=== PATIENT | female | born 1950 | race Caucasian/White ===

== ENCOUNTER 2018-02-02 17:43 | Observation (INO) | payer MEDICARE, OTHER, SELFPAY ==
[2018-02-02] VITALS (9 sets, daily range): BP systolic 98–118; BP diastolic 38–75; PULSE 92–98; RESP 11–18; TEMP 36.5–36.6; O2SAT 94–97; BMI 38.2; BMI 38.3
--- NOTE | 2018-02-02 18:04 | EKG12_ITS ---
Test Reason : Blood Pressure : / mmHG Vent. Rate : 092 BPM Atrial Rate : 092 BPM P-R Int : 154 ms QRS Dur : 088 ms QT Int : 372 ms P-R-T Axes : 026 008 146 degrees QTc Int : 460 ms Normal sinus rhythm Low voltage QRS Nonspecific T wave abnormality Abnormal ECG Confirmed by GENE SIMPSON, EVELINA ([id number]), production editor POPEYE FOSS ([id number]) on 02/06/2018 3:57:01 PM Referred By: YULISA Confirmed By:EVELINA MILLS MD
--- NOTE | 2018-02-02 18:05 | RAD_ITS ---
STUDY: X-RAY CHEST REASON FOR EXAM: Female, 67 years old. Shortness of breath. TECHNIQUE: Single AP portable view of the chest. COMPARISON: November 28, 2016. FINDINGS: Patient has had a sternotomy. A right-sided Mediport catheter is present with the tip of the catheter in the superior vena cava. There is moderate elevation of the right hemidiaphragm. The left lung is expanded. Appears to be small right-sided pleural effusion. There is borderline cardiomegaly. Normal mediastinum and blayne. Normal visualized pulmonary arteries. There is atherosclerotic calcification of the aortic arch with tortuosity. There are diffuse degenerative changes of the visualized thoracic spine. Normal visualized ribs, clavicles, and shoulders. There appear to be percutaneously placed drains within the right side of the abdomen and/or retroperitoneum. RAD/Chest 1 View (Portable) IMPRESSION: Small right-sided pleural effusion appears new since previous study. Electronically Signed: Nhung Sexton MD at 18:41 EDT , Service support ,
[2018-02-02] MEDS: Morphine 4 MG/ML Syringe IV (18:29)
[2018-02-02] MEDS: 0.9% Normal Saline 1,000 ML 125 ML IV (18:30)
[2018-02-02] MEDS: Ondansetron 4 MG/2 ML Vial IV (18:30)
[2018-02-02 18:34] LABS: Hemoglobin 10.2 g/dl (12.0-15.0); Mean Corp Hgb Conc 31.9 g/gl (32-36); Mean Corpuscular Hgb 31.5 pg (27.0-32.0); Mean Corpuscular Volume 98.8 fL (81-99); Mean Platelet Vol. 10.1 fl (6.2-12.0); Platelet Count 130 K/mm3 (150-450); RBC Distribution Width CV 17.1 % (11.6-14.6); RBC Distribution Width SD 60.6 fl (35.1-43.9); Red Blood Count 3.24 M/mm3 (4.2-5.4); White Blood Count 22.1 K/mm3 (4.4-11.0)
[2018-02-02 18:48] LABS: AST(SGOT) 124 U/L (15-37); Alanine Aminotransfer ALT/SGPT 42 U/L (13-56); Albumin, Serum 1.2 g/dL (3.2-5.0); Alkaline Phosphatase 279 U/L (45-117); Anion Gap 10 (5-15); BUN 39 mg/dL (7-18); BUN/Creat Ratio 18.1 RATIO (10-20); Bilirubin, Direct 10.76 mg/dL (0.00-0.30); Calcium,Total 7.7 mg/dL (8.5-10.1); Chloride 109 mmol/L (98-107); Creatinine, Serum 2.15 mg/dL (0.55-1.02); EST Glomerular Filtration Rate 24 mL/min (>60); Est Glom Filt Rate - Afr Amer 29 mL/min (>60); Estimated Creatinine Clearance 31.83 ml/min; Globulin 6.6 g/dL (2.2-4.2); Glucose 66 mg/dL (74-106); Lipase 45 U/L (73-393); Potassium 4.4 mmol/L (3.5-5.1); Protein, Total 7.8 g/dL (6.4-8.2); Sodium Level 138 mmol/L (136-145)
[2018-02-02 18:50] LABS: Lactic Acid 1.5 mmol/L (0.4-2.0); POSITIVE COUNT YES; POSITIVE DIFFERENTIAL YES; POSITIVE MORPHOLOGY YES
[2018-02-02 18:54] LABS: Mucous, Urine 0 SEEN /hpf (<or=2+)
[2018-02-02] MEDS: Dextrose 50%-Water 25 GM/50 ML DISP.SYRIN IV (18:59)
[2018-02-02 19:00] LABS: Color, Urine Amber (Yellow); Glucose, Dipstick Normal (Normal); Ketone-Dipstick 5 mg/dl (Negative); Leukocyte Esterase-Dipstick 25 /ul (Negative); Nitrite-Dipstick Positive (Negative); Occult Blood-Urine 150 /ul (Negative); Protein-Dipstick 30 mg/dl (Negative); Urine Clarity Cloudy (Clear); Urine Urobilinogen 4 mg/dl (Normal)
[2018-02-02 19:01] LABS: Scan Smear per Review Criteria MANUAL DIFF
[2018-02-02 19:02] LABS: Differential Indicated MANUAL DIFF
[2018-02-02 19:04] LABS: Basophil 1 % (0-1); Lymphocyte 3 % (19-41); Metamyelocyte 5 % (0-1); Monocyte 5 % (0-10); Neutrophil-Band 11 % (0-5); Neutrophil-Segmented 75 % (47-70); Total Cells Counted 100 (MANUAL DIFF)
--- NOTE | 2018-02-02 19:05 | CT_ITS ---
STUDY: CT ABDOMEN AND PELVIS WITHOUT CONTRAST REASON FOR EXAM: Female, 67 years old. Pain. History of bile duct cancer with chemotherapy and drainage catheter placement. RADIATION DOSAGE (If Supplied By Facility): CTDIvol = ( 20.93 ) mGy, DLP = ( 1187.29 ) mGycm TECHNIQUE: Transaxial images were obtained from the dome of the diaphragm to the symphysis pubis without oral contrast, and without intravenous contrast. Sagittal and coronal images were reconstructed. Individualized dose optimization techniques were used for this CT. COMPARISON: 12/21/2016 FINDINGS: The study is significantly limited without contrast. There is a moderate right pleural effusion with overlying atelectasis. The patient is status post sternotomy and coronary artery bypass. There is a pacemaker in place. There is a common bile duct stent in place. There are 2 internal/external biliary drainage catheters which traverse the common bile duct stent and have their tips in the duodenum. Although evaluation is limited without contrast, the previously seen biliary ductal dilatation appears to have decreased when compared with 12/21/2016. The spleen is normal in size. The pancreas demonstrates an unremarkable unenhanced appearance. The adrenal glands are within normal limits. There are no renal or ureteral stones. There is no hydronephrosis. Normal visualized stomach. There is no bowel obstruction or inflammation. There is a moderate amount of stool in the colon, consistent with constipation. The appendix is not visualized, but there are no findings to suggest acute appendicitis. The aorta is normal in caliber. There is an IVC filter in place. There is a small amount of free fluid. There is no free air, fluid collection or lymphadenopathy. There are new sclerotic osseous lesions noted in the right 11th rib, L3 vertebral body, bilateral iliac bones and in the sacrum. These are suspicious for metastasis. There is anasarca noted in the soft tissues. CT/Abdomen/Pelvis without Cont IMPRESSION: Study significantly limited without contrast. Interval placement of 2 internal/external biliary drainage catheters which traverse the previously seen common bile duct stent and have their tips in the duodenum. Although evaluation is significantly limited without contrast, the previously seen intrahepatic biliary duct dilatation appears to have decreased. New sclerotic osseous lesions in the ribs, spine, iliac bones and sacrum which are suspicious for metastasis. Further evaluation with bone scan is recommended. No bowel obstruction or inflammation. Constipation. Small amount of ascites. Moderate right pleural effusion with overlying atelectasis. Anasarca. Electronically Signed: Sherman Scanlon, at 19:44 EDT Tel , Service support ,
[2018-02-02 19:06] LABS: Urine Bilirubin Dipstick 6 mg/dL (Negative)
[2018-02-02 19:12] LABS: Amorphous Sediment 1+ URATE; Bacteria RARE /hpf (None Seen); Red Blood Cells-Urine 5-10 SEEN /hpf (0-5); Squamous Epithelial Cells - UA 0-5 SEEN /hpf (5-10); White Blood Cells 0-5 SEEN /hpf (0-5)
[2018-02-02 19:13] LABS: Yeast-Urine 1+ /hpf (None Seen)
--- NOTE | 2018-02-02 20:02 | ED.VISSUMM ---
- ER Visit Summary Date of Service: 02/02/18 Chief Complaint: Shortness of breath, weakness History of Present Illness: The patient is a 67 F presents to the emergency department with weakness and shortness of breath. The patient has history of cholangiocarcinoma. It has been rather invasive. Her recent course has been complicated by biliary duct obstruction. She was recently transferred to the [facility]. She had percutaneous drains placed in her biliary collection system by interventional radiology. Despite this, her jaundice has been worsening. She is now had increasing shortness of breath and generalized malaise. She has not had fever. She is been compliant with her Cipro therapy. She has not had any chemotherapy for greater than 10 days. She presents tonight because she states she is just been more weak and short of breath. is at the bedside. Physical Examination: Vital signs reviewed General: Cachectic elderly female who is visibly jaundiced in no distress Head: Normocephalic, atraumatic Eyes: Pupils equal and reactive, extraocular muscles intact Neck, supple, no lymphadenopathy Heart: Regular rate and rhythm Respiratory: No distress, diminished in the right base Abdomen: Soft, nontender, nondistended, no peritoneal signs, biliary drains intact with no purulence or erythema Back: Nontender Extremities: Nontender, no edema, no cords Skin: Normal color no rash Neuro: Alert and oriented, no focal or lateralizing deficits Test Results: [] Emergency Department Course and Treatment: Metabolic workup was pursued. The patient was not febrile, but she is obviously visibly jaundiced. IV was established. Screening labs showed leukocytosis, chronic anemia, worsening renal function, and rather significant increase in her bilirubin. Chest x-ray shows a right-sided effusion. CT of the abdomen pelvis cannot be done with contrast because of her worsening renal function. It does appear as if her biliary tract has been decompressed since the percutaneous drains were placed, but she does have new osseous metastasis, anasarca, and worsening of her disease. I discussed the patient with Dr. Sanchez. In light of her multiple aggressive recent treatments and failing despite these, he did not recommend transfer and I feel this is reasonable. Unfortunately, I do feel that the patient's malignancy is going to take her life sooner rather than later. The plan will be to admit the patient with oncology consult and likely pursuit of inpatient hospice. Family is comfortable with this plan of care. Treatment Plan: [] Disposition: Admission Impression: 1. Fatigue 2. Pleural effusion 3. Cholangiocarcinoma with diffuse metastasis This note was generated with [employer] dictation software. It may contain incorrect words, spelling, and punctuation that were not noted in review of the chart prior to signing ED Disposition - Plan for ED Patient: Chief Complaint: Shortness of Breath Referrals: Francisca Barron, JOCELIN-C [Primary Care Provider] -
--- NOTE | 2018-02-02 20:10 | ED.DCSUM_ITS ---
- ER Visit Summary Date of Service: 02/02/18 Chief Complaint: Shortness of breath, weakness History of Present Illness: The patient is a 67 F presents to the emergency department with weakness and shortness of breath. The patient has history of cholangiocarcinoma. It has been rather invasive. Her recent course has been complicated by biliary duct obstruction. She was recently transferred to the [facility]. She had percutaneous drains placed in her biliary collection system by interventional radiology. Despite this, her jaundice has been worsening. She is now had increasing shortness of breath and generalized malaise. She has not had fever. She is been compliant with her Cipro therapy. She has not had any chemotherapy for greater than 10 days. She presents tonight because she states she is just been more weak and short of breath. is at the bedside. Physical Examination: Vital signs reviewed General: Cachectic elderly female who is visibly jaundiced in no distress Head: Normocephalic, atraumatic Eyes: Pupils equal and reactive, extraocular muscles intact Neck, supple, no lymphadenopathy Heart: Regular rate and rhythm Respiratory: No distress, diminished in the right base Abdomen: Soft, nontender, nondistended, no peritoneal signs, biliary drains intact with no purulence or erythema Back: Nontender Extremities: Nontender, no edema, no cords Skin: Normal color no rash Neuro: Alert and oriented, no focal or lateralizing deficits Test Results: [] Emergency Department Course and Treatment: Metabolic workup was pursued. The patient was not febrile, but she is obviously visibly jaundiced. IV was established. Screening labs showed leukocytosis, chronic anemia, worsening renal function, and rather significant increase in her bilirubin. Chest x-ray shows a right-sided effusion. CT of the abdomen pelvis cannot be done with contrast because of her worsening renal function. It does appear as if her biliary tract has been decompressed since the percutaneous drains were placed, but she does have new osseous metastasis, anasarca, and worsening of her disease. I discussed the patient with Dr. Sanchez. In light of her multiple aggressive recent treatments and failing despite these, he did not recommend transfer and I feel this is reasonable. Unfortunately, I do feel that the patient's malignancy is going to take her life sooner rather than later. The plan will be to admit the patient with oncology consult and likely pursuit of inpatient hospice. Family is comfortable with this plan of care. Treatment Plan: [] Disposition: Admission Impression: 1. Fatigue 2. Pleural effusion 3. Cholangiocarcinoma with diffuse metastasis This note was generated with trend.ly dictation software. It may contain incorrect words, spelling, and punctuation that were not noted in review of the chart prior to signing ED Disposition - Plan for ED Patient: Chief Complaint: Shortness of Breath Referrals: Francisca Barron, JOCELIN-C [Primary Care Provider] -
--- NOTE | 2018-02-02 20:27 | PCM.HP.STD ---
Problem List (1) Pleural effusion, right Status: Acute (2) Cholangiocarcinoma Status: Chronic (3) Chronic kidney disease, stage III (moderate) Status: Inactive History of Present Illness Date of Admission: 02/02/18 Chief Complaint: shortness of breath and chest congestion The patient is a 67 year old F with a significant history of Cholangiocarcinoma with diffuse metastasis; CAD status post CABG and stent; hypertension; hyperlipidemia who presents with worsening shortness of breath and chest congestion for the past 2-3 days. Shortness of breath is at rest and it increases with exertion. She reports a productive cough of carvalho and white sputum. Associated with her symptoms is anorexia and weakness. In regards to her Cholangiocarcinoma with diffuse metastasis she had a previous biliary stent and a percutaneous drain was placed about 2 weeks ago at [facility].. At emergency department her white count was elevated and her creatinine was also severely elevated above her baseline. Emergency department doctor discussed her case with Dr. Gomez Sanchez who is patient's known oncologist. Per emergency department doctor, Dr. Sanchez wanted patient to be admitted with a plan to consider inpatient hospice since her cancer has progressed. Past Medical History Past Medical History (Chronic Problems): Chronic Problems (Last Reviewed 02/02/18 @ 20:37 by Evaristo Mayen MD) Cholangiocarcinoma (Chronic) Supraventricular premature beats (Chronic) Paroxysmal supraventricular tachycardia (Chronic) Old myocardial infarction (Chronic) Palpitations (Chronic) 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) CABG, LUIS to LAD 03/13/10 Cholangiocarcinoma (Chronic) History of biliary stenting Pulmonary hypertension (Chronic) Obstructive jaundice due to cancer (Chronic) Status post biliary stenting Common bile duct mass (Chronic) Coronary atherosclerosis of rampart coronary vessel (Chronic) Percutaneous transluminal coronary angioplasty status (Chronic) S/P CABG x 1 (Chronic) 03/13/10, CABG LUIS to LAD occluded, RCA normal Cx minor luminal irreg; SVT (supraventricular tachycardia) (Chronic) HLD (hyperlipidemia) (Chronic) HTN (hypertension) (Chronic) Hypothyroidism (Chronic) Type II diabetes mellitus (Chronic) Medical History: Medical History (Last Reviewed 02/02/18 @ 20:37 by Evaristo Mayen MD) Supraventricular premature beats (Chronic) I49.1 Paroxysmal supraventricular tachycardia (Chronic) I47.1 Old myocardial infarction (Chronic) I25.2 Palpitations (Chronic) R00.2 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) I25.810 CABG, LUIS to LAD 03/13/10 Pulmonary hypertension (Chronic) I27.2 Coronary atherosclerosis of rampart coronary vessel (Chronic) I25.10 HLD (hyperlipidemia) (Chronic) E78.5 HTN (hypertension) (Chronic) I10 Cough R05 Dizziness and giddiness R42 Shortness of breath R06.02 Allergies amiodarone Adverse Reaction (Verified 06/27/17 09:44) SOB lisinopril Adverse Reaction (Verified 06/27/17 09:43) cough COUGH Home Medications: Ambulatory Orders Medication Instructions Recorded Montelukast [Singulair] 10 mg PO QHS 07/13/16 Omeprazole 40 mg PO DAILY 07/13/16 Aspirin E.C. [Ecotrin] 81 mg PO DAILY 02/02/18 Cholecalciferol (Vitamin D3) 2,000 unit PO DAILY 02/02/18 [D3-2000] Ciprofloxacin [Cipro] 500 mg PO BID 02/02/18 Dexamethasone 0.25 mg PO QODAY 02/02/18 Levothyroxine [Synthroid] 175 mcg PO DAILY 02/02/18 Morphine Sulfate [Morphine Sulfate 30 mg PO Q12H 02/02/18 ER] Oxycodone [Oxyir] 5 mg PO Q4H PRN PRN 02/02/18 Surgical History: Surgical History (Last Reviewed 02/02/18 @ 20:37 by Evaristo Mayen MD) Aortocoronary bypass status (Resolved) Z95.1 03/13/10, CABG LUIS to LAD occluded, RCA normal Cx minor luminal irreg; Presence of stent in coronary artery (Resolved) Z95.5 stent to LAD Hx laparoscopic cholecystectomy Z90.49 Surgical History: angioplasty, cholecystectomy, coronary bypass surgery, tonsillectomy, - - IVC filter insertion, bladder sling, partial knee replacement, D&C, surgery for subdural hematoma, rotator cuff repair Psychiatric History: No pertinent psych hx 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 PROCESSOR history Lives: Spouse/ Significant Other Smoking Status: Never smoker Alcohol: None - *Family History Paternal Family History: Family History (Last Reviewed 02/03/18 @ 00:10 by Evaristo Mayen MD) Father CAD (coronary artery disease) Myocardial infarction Mother Hypertension paget disease Brother CAD (coronary artery disease) Myocardial infarction Grandmother Cancer History Items: Heart Disease Maternal Family History: Family History (Last Reviewed 02/03/18 @ 00:10 by Evaristo Mayen MD) Father CAD (coronary artery disease) Myocardial infarction Mother Hypertension paget disease Brother CAD (coronary artery disease) Myocardial infarction Grandmother Cancer History Items: Heart Disease Review of Systems Constitutional: Denies: Chills, Fever, Weight Change HEENT: Denies: Head Aches, Sinus Congestion, Sinus Drainage Cardiovascular: Denies: Chest Pain, Palpitations Respiratory: Reports: Shortness of breath at rest, Shortness of breath upon exertion. Denies: Cough, Sputum production Gastrointestinal: Reports: Abdominal Pain. Denies: Nausea, Vomiting Genitourinary: Denies: Dysuria Musculoskeletal: Denies: Joint Pain, Joint Tenderness Skin: Reports: Jaundice. Denies: Rash, Wounds Neurological: Denies: Numbness, Tingling, Focal weakness Psychiatric: Denies: Anxiety, Depression, Homicidal Ideations, Suicidal Ideations Hematologic/ Lymphatic: Denies: Easy Bruising, Easy Bleeding VTE Information - Inpt Only VTE Present on Admission: No VTE Mechan Device Prophylaxis: None VTE Pharm Prophylaxis ordered?: Yes Patient Problems: Active and Suspected Problems (Last Reviewed 02/02/18 @ 20:37 by Evaristo Mayen MD) Pleural effusion, right (Acute) - Physical Exam General: Alert, Oriented x3, Cooperative, Lethargic HEENT: Atraumatic, PERRLA, EOMI, Normocephalic, - - Scleral icterus Neck: Supple, No JVD, Negative Carotid Bruits Lungs: Diminished - Right base, Rales - Left base Cardiovascular: Regular rate, No murmurs Abdomen: Bowel Sounds Present, Soft, Non Tender, - - [address] Extremities: Capillary Refill Less than 3 Seconds, Edema - 1+ bilateral Skin: No rashes, No breakdown, - - Jaundiced Musculoskeletal: No Tenderness to Palpation of Joints or Extremities Neurological: Cranial nerves II-XII grossly intact Psych/Mental Status: Normal Affect, Appropriate Vital Signs Temp Pulse Resp BP Pulse Ox 97.7 F L 94 13 118/58 L 95 02/02/18 17:44 02/02/18 20:24 02/02/18 20:24 02/02/18 20:24 02/02/18 20:24 Oxygen Delivery Method Room Air Weight: 81.647 kg Body Mass Index (BMI) 0.2 Laboratory Tests Past 24 Hrs 02/02/18 02/02/18 02/02/18 18:16 18:16 18:16 WBC 22.1 H RBC 3.24 L Hgb 10.2 L Hct 32.0 L MCV 98.8 MCH 31.5 MCHC 31.9 L RDW 17.1 H RDW Differential 60.6 H Plt Count 130 L MPV 10.1 Immature Gran % (Auto) SENIOR INSTRUCTIONAL DESIGNER Neut % (Auto) SENIOR INSTRUCTIONAL DESIGNER Lymph % (Auto) SENIOR INSTRUCTIONAL DESIGNER Stafford % (Auto) SENIOR INSTRUCTIONAL DESIGNER Eos % (Auto) SENIOR INSTRUCTIONAL DESIGNER Baso % (Auto) SENIOR INSTRUCTIONAL DESIGNER Absolute Neuts (auto) SENIOR INSTRUCTIONAL DESIGNER Absolute Lymphs (auto) SENIOR INSTRUCTIONAL DESIGNER Total Counted 100 Neutrophils % (Manual) 75 H Band Neutrophils % 11 H Lymphocytes % (Manual) 3 L Monocytes % (Manual) 5 Basophils % (Manual) 1 Metamyelocytes % 5 H Diff Path Review May foll Sodium 138 Potassium 4.4 Chloride 109 H Carbon Dioxide 19.0 L Anion Gap 10 BUN 39 H Creatinine 2.15 H Estim Creat Clear Calc 31.83 Est GFR (MDRD) Af Amer 29 L Est GFR (MDRD) Non-Af 24 L BUN/Creatinine Ratio 18.1 Glucose 66 L Lactic Acid 1.5 Calcium 7.7 L Total Bilirubin 12.80 H Direct Bilirubin 10.76 H AST 124 H ALT 42 Alkaline Phosphatase 279 H Total Protein 7.8 Albumin 1.2 L Globulin 6.6 H Lipase 45 L Urine Color Urine Clarity Urine pH Ur Specific Brutus Urine Protein Urine Glucose (UA) Urine Ketones Urine Occult Blood Urine Nitrite Urine Bilirubin Urine Urobilinogen Ur Leukocyte Esterase Urine RBC Urine WBC Ur Squamous Epith Cells Amorphous Sediment Urine Bacteria Urine Mucus Urine Yeast 02/02/18 18:45 WBC RBC Hgb Hct MCV MCH MCHC RDW RDW Differential Plt Count MPV Immature Gran % (Auto) Neut % (Auto) Lymph % (Auto) Stafford % (Auto) Eos % (Auto) Baso % (Auto) Absolute Neuts (auto) Absolute Lymphs (auto) Total Counted Neutrophils % (Manual) Band Neutrophils % Lymphocytes % (Manual) Monocytes % (Manual) Basophils % (Manual) Metamyelocytes % Diff Path Review Sodium Potassium Chloride Carbon Dioxide Anion Gap BUN Creatinine Estim Creat Clear Calc Est GFR (MDRD) Af Amer Est GFR (MDRD) Non-Af BUN/Creatinine Ratio Glucose Lactic Acid Calcium Total Bilirubin Direct Bilirubin AST ALT Alkaline Phosphatase Total Protein Albumin Globulin Lipase Urine Color Devika Urine Clarity Cloudy Urine pH 5.0 Ur Specific Brutus 1.020 Urine Protein 30 H Urine Glucose (UA) Normal Urine Ketones 5 H Urine Occult Blood 150 H Urine Nitrite Positive H Urine Bilirubin 6 H Urine Urobilinogen 4 H Ur Leukocyte Esterase 25 H Urine RBC 5-10 SEEN Urine WBC 0-5 SEEN Ur Squamous Epith Cells 0-5 SEEN Amorphous Sediment 1+ URATE Urine Bacteria RARE Urine Mucus 0 SEEN Urine Yeast 1+ Assessment/Plan All Active Problems (Last Reviewed 02/02/18 @ 20:37 by Evaristo Mayen MD) Pleural effusion, right (Acute) Aortocoronary bypass status (Resolved) Abnormal electrocardiogram (Acute) Presence of stent in coronary artery (Resolved) retirement use of drug (Acute) Sepsis (Acute) Neutropenic fever (Acute) Severe sepsis with acute organ dysfunction due to Gram negative bacteria (Acute) The patient is a 67 year old F with a significant history of Cholangiocarcinoma with diffuse metastasis and with a biliary stent and biliary drainage; CAD status post CABG and stent; hypertension; hyperlipidemia who presents with worsening shortness of breath and chest congestion and found to have right-sided pleural effusion. Right pleural effusion Independent review of CT of the abdomen and chest x-ray confirms right-sided pleural effusion. Likely secondary to Cholangiocarcinoma with diffuse metastasis Prn Oxygen if needed No aggressive management at this time. Patient is a DNR CC. Shared decision with patient and family for no aggressive treatment at this time. Shared decision to continue current home medications and for Dr. Gomez Sanchez to see patient to [place] for further clarification of goals of care. Per conversation between ED doctor and Dr. Sanchez inpatient hospice will be pursued. Will defer further conversation at this time to Dr. Sanchez. Cholangiocarcinoma with diffuse metastasis Oncology consult as above Continue home ciprofloxacin prophylactically to prevent abdominal infection. Home morphine and OxyContin continued. We will add breakthrough oxycodone IR. Scheduled Senokot. RAMIN Her creatinine on admission was 2.15 Her creatinine about a year ago was around 0.90. Her BUN on admission was 39. BUN a year ago was less than 20. Likely prerenal from dehydration. Patient received some IV fluid hydration at the emergency department. In the setting of chest congestion; pleural effusion and consideration for hospice IV fluid hydration will not have been warranted. However patient had hypoglycemia at emergency department for which reason patient was given D50. We will start patient on D5W which should help her blood glucose; and also help for hydration for her ARMIN since AK likely is prerenal. Further hydration will depend upon goes of care Repeat BMP in a.m. Leukocytosis White count on admission was 22,100 Likely reactive from cancer. It could also be from infection. Repeat CBC in a.m. We will continue her home ciprofloxacin. Hypoglycemia Receive half an amp of dextrose at emergency department Gentle hydration with D5W. DVT prophylaxis Subcutaneous heparin. Lovenox not started because of decreased creatinine clearance. Code Visit Inpatient E&M: 89044 Init Hosp L3
--- NOTE | 2018-02-02 20:34 | ED.RN ---
PT trending downward with blood pressure. PT is DNRCC, aware and DNR order verified. 81/56.
--- NOTE | 2018-02-02 20:37 | HP.PCM_ITS ---
Problem List (1) Pleural effusion, right Status: Acute (2) Cholangiocarcinoma Status: Chronic (3) Chronic kidney disease, stage III (moderate) Status: Inactive History of Present Illness Date of Admission: 02/02/18 Chief Complaint: shortness of breath and chest congestion The patient is a 67 year old F with a significant history of Cholangiocarcinoma with diffuse metastasis; CAD status post CABG and stent; hypertension; hyperlipidemia who presents with worsening shortness of breath and chest congestion for the past 2-3 days. Shortness of breath is at rest and it increases with exertion. She reports a productive cough of carvalho and white sputum. Associated with her symptoms is anorexia and weakness. In regards to her Cholangiocarcinoma with diffuse metastasis she had a previous biliary stent and a percutaneous drain was placed about 2 weeks ago at [facility].. At emergency department her white count was elevated and her creatinine was also severely elevated above her baseline. Emergency department doctor discussed her case with Dr. Gomez Sanchez who is patient's known oncologist. Per emergency department doctor, Dr. Sanchez wanted patient to be admitted with a plan to consider inpatient hospice since her cancer has progressed. Past Medical History Past Medical History (Chronic Problems): Chronic Problems (Last Reviewed 02/02/18 @ 20:37 by Evaristo Mayen MD) Cholangiocarcinoma (Chronic) Supraventricular premature beats (Chronic) Paroxysmal supraventricular tachycardia (Chronic) Old myocardial infarction (Chronic) Palpitations (Chronic) 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) CABG, LUIS to LAD 03/13/10 Cholangiocarcinoma (Chronic) History of biliary stenting Pulmonary hypertension (Chronic) Obstructive jaundice due to cancer (Chronic) Status post biliary stenting Common bile duct mass (Chronic) Coronary atherosclerosis of [place] coronary vessel (Chronic) Percutaneous transluminal coronary angioplasty status (Chronic) S/P CABG x 1 (Chronic) 03/13/10, CABG LUIS to LAD occluded, RCA normal Cx minor luminal irreg; SVT (supraventricular tachycardia) (Chronic) HLD (hyperlipidemia) (Chronic) HTN (hypertension) (Chronic) Hypothyroidism (Chronic) Type II diabetes mellitus (Chronic) Medical History: Medical History (Last Reviewed 02/02/18 @ 20:37 by Evaristo Mayen MD) Supraventricular premature beats (Chronic) I49.1 Paroxysmal supraventricular tachycardia (Chronic) I47.1 Old myocardial infarction (Chronic) I25.2 Palpitations (Chronic) R00.2 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) I25.810 CABG, LUIS to LAD 03/13/10 Pulmonary hypertension (Chronic) I27.2 Coronary atherosclerosis of [place] coronary vessel (Chronic) I25.10 HLD (hyperlipidemia) (Chronic) E78.5 HTN (hypertension) (Chronic) I10 Cough R05 Dizziness and giddiness R42 Shortness of breath R06.02 Allergies amiodarone Adverse Reaction (Verified 06/27/17 09:44) SOB lisinopril Adverse Reaction (Verified 06/27/17 09:43) cough COUGH Home Medications: Ambulatory Orders Medication Instructions Recorded Montelukast [Singulair] 10 mg PO QHS 07/13/16 Omeprazole 40 mg PO DAILY 07/13/16 Aspirin E.C. [Ecotrin] 81 mg PO DAILY 02/02/18 Cholecalciferol (Vitamin D3) 2,000 unit PO DAILY 02/02/18 [D3-2000] Ciprofloxacin [Cipro] 500 mg PO BID 02/02/18 Dexamethasone 0.25 mg PO QODAY 02/02/18 Levothyroxine [Synthroid] 175 mcg PO DAILY 02/02/18 Morphine Sulfate [Morphine Sulfate 30 mg PO Q12H 02/02/18 ER] Oxycodone [Oxyir] 5 mg PO Q4H PRN PRN 02/02/18 Surgical History: Surgical History (Last Reviewed 02/02/18 @ 20:37 by Evaristo Mayen MD) Aortocoronary bypass status (Resolved) Z95.1 03/13/10, CABG LUIS to LAD occluded, RCA normal Cx minor luminal irreg; Presence of stent in coronary artery (Resolved) Z95.5 stent to LAD Hx laparoscopic cholecystectomy Z90.49 Surgical History: angioplasty, cholecystectomy, coronary bypass surgery, tonsillectomy, - - IVC filter insertion, bladder sling, partial knee replacement, D&C, surgery for subdural hematoma, rotator cuff repair Psychiatric History: No pertinent psych hx CHIEF OF PARTY History: No pertinent CHIEF OF PARTY history Lives: Spouse/ Significant Other Smoking Status: Never smoker Alcohol: None - *Family History Paternal Family History: Family History (Last Reviewed 02/03/18 @ 00:10 by Evaristo Mayen MD) Father CAD (coronary artery disease) Myocardial infarction Mother Hypertension paget disease Brother CAD (coronary artery disease) Myocardial infarction Grandmother Cancer History Items: Heart Disease Maternal Family History: Family History (Last Reviewed 02/03/18 @ 00:10 by Evaristo Mayen MD) Father CAD (coronary artery disease) Myocardial infarction Mother Hypertension paget disease Brother CAD (coronary artery disease) Myocardial infarction Grandmother Cancer History Items: Heart Disease Review of Systems Constitutional: Denies: Chills, Fever, Weight Change HEENT: Denies: Head Aches, Sinus Congestion, Sinus Drainage Cardiovascular: Denies: Chest Pain, Palpitations Respiratory: Reports: Shortness of breath at rest, Shortness of breath upon exertion. Denies: Cough, Sputum production Gastrointestinal: Reports: Abdominal Pain. Denies: Nausea, Vomiting Genitourinary: Denies: Dysuria Musculoskeletal: Denies: Joint Pain, Joint Tenderness Skin: Reports: Jaundice. Denies: Rash, Wounds Neurological: Denies: Numbness, Tingling, Focal weakness Psychiatric: Denies: Anxiety, Depression, Homicidal Ideations, Suicidal Ideations Hematologic/ Lymphatic: Denies: Easy Bruising, Easy Bleeding VTE Information - Inpt Only VTE Present on Admission: No VTE Mechan Device Prophylaxis: None VTE Pharm Prophylaxis ordered?: Yes Patient Problems: Active and Suspected Problems (Last Reviewed 02/02/18 @ 20:37 by Evaristo Mayen MD) Pleural effusion, right (Acute) - Physical Exam General: Alert, Oriented x3, Cooperative, Lethargic HEENT: Atraumatic, PERRLA, EOMI, Normocephalic, - - Scleral icterus Neck: Supple, No JVD, Negative Carotid Bruits Lungs: Diminished - Right base, Rales - Left base Cardiovascular: Regular rate, No murmurs Abdomen: Bowel Sounds Present, Soft, Non Tender, - - [address] Extremities: Capillary Refill Less than 3 Seconds, Edema - 1+ bilateral Skin: No rashes, No breakdown, - - Jaundiced Musculoskeletal: No Tenderness to Palpation of Joints or Extremities Neurological: Cranial nerves II-XII grossly intact Psych/Mental Status: Normal Affect, Appropriate Vital Signs Temp Pulse Resp BP Pulse Ox 97.7 F L 94 13 118/58 L 95 02/02/18 17:44 02/02/18 20:24 02/02/18 20:24 02/02/18 20:24 02/02/18 20:24 Oxygen Delivery Method Room Air Weight: 81.647 kg Body Mass Index (BMI) 0.2 Laboratory Tests Past 24 Hrs 02/02/18 02/02/18 02/02/18 18:16 18:16 18:16 WBC 22.1 H RBC 3.24 L Hgb 10.2 L Hct 32.0 L MCV 98.8 MCH 31.5 MCHC 31.9 L RDW 17.1 H RDW Differential 60.6 H Plt Count 130 L MPV 10.1 Immature Gran % (Auto) ENVIRONMENTAL ASSOCIATE Neut % (Auto) ENVIRONMENTAL ASSOCIATE Lymph % (Auto) ENVIRONMENTAL ASSOCIATE [place] % (Auto) ENVIRONMENTAL ASSOCIATE Eos % (Auto) ENVIRONMENTAL ASSOCIATE Baso % (Auto) ENVIRONMENTAL ASSOCIATE Absolute Neuts (auto) ENVIRONMENTAL ASSOCIATE Absolute Lymphs (auto) ENVIRONMENTAL ASSOCIATE Total Counted 100 Neutrophils % (Manual) 75 H Band Neutrophils % 11 H Lymphocytes % (Manual) 3 L Monocytes % (Manual) 5 Basophils % (Manual) 1 Metamyelocytes % 5 H Diff Path Review May foll Sodium 138 Potassium 4.4 Chloride 109 H Carbon Dioxide 19.0 L Anion Gap 10 BUN 39 H Creatinine 2.15 H Estim Creat Clear Calc 31.83 Est GFR (MDRD) Af Amer 29 L Est GFR (MDRD) Non-Af 24 L BUN/Creatinine Ratio 18.1 Glucose 66 L Lactic Acid 1.5 Calcium 7.7 L Total Bilirubin 12.80 H Direct Bilirubin 10.76 H AST 124 H ALT 42 Alkaline Phosphatase 279 H Total Protein 7.8 Albumin 1.2 L Globulin 6.6 H Lipase 45 L Urine Color Urine Clarity Urine pH Ur Specific [place] Urine Protein Urine Glucose (UA) Urine Ketones Urine Occult Blood Urine Nitrite Urine Bilirubin Urine Urobilinogen Ur Leukocyte Esterase Urine RBC Urine WBC Ur Squamous Epith Cells Amorphous Sediment Urine Bacteria Urine Mucus Urine Yeast 02/02/18 18:45 WBC RBC Hgb Hct MCV MCH MCHC RDW RDW Differential Plt Count MPV Immature Gran % (Auto) Neut % (Auto) Lymph % (Auto) [place] % (Auto) Eos % (Auto) Baso % (Auto) Absolute Neuts (auto) Absolute Lymphs (auto) Total Counted Neutrophils % (Manual) Band Neutrophils % Lymphocytes % (Manual) Monocytes % (Manual) Basophils % (Manual) Metamyelocytes % Diff Path Review Sodium Potassium Chloride Carbon Dioxide Anion Gap BUN Creatinine Estim Creat Clear Calc Est GFR (MDRD) Af Amer Est GFR (MDRD) Non-Af BUN/Creatinine Ratio Glucose Lactic Acid Calcium Total Bilirubin Direct Bilirubin AST ALT Alkaline Phosphatase Total Protein Albumin Globulin Lipase Urine Color Devika Urine Clarity Cloudy Urine pH 5.0 Ur Specific [place] 1.020 Urine Protein 30 H Urine Glucose (UA) Normal Urine Ketones 5 H Urine Occult Blood 150 H Urine Nitrite Positive H Urine Bilirubin 6 H Urine Urobilinogen 4 H Ur Leukocyte Esterase 25 H Urine RBC 5-10 SEEN Urine WBC 0-5 SEEN Ur Squamous Epith Cells 0-5 SEEN Amorphous Sediment 1+ URATE Urine Bacteria RARE Urine Mucus 0 SEEN Urine Yeast 1+ Assessment/Plan All Active Problems (Last Reviewed 02/02/18 @ 20:37 by Evaristo Mayen MD) Pleural effusion, right (Acute) Aortocoronary bypass status (Resolved) Abnormal electrocardiogram (Acute) Presence of stent in coronary artery (Resolved) group home use of drug (Acute) Sepsis (Acute) Neutropenic fever (Acute) Severe sepsis with acute organ dysfunction due to Gram negative bacteria (Acute) The patient is a 67 year old F with a significant history of Cholangiocarcinoma with diffuse metastasis and with a biliary stent and biliary drainage; CAD status post CABG and stent; hypertension; hyperlipidemia who presents with worsening shortness of breath and chest congestion and found to have right-sided pleural effusion. Right pleural effusion Independent review of CT of the abdomen and chest x-ray confirms right-sided pleural effusion. Likely secondary to Cholangiocarcinoma with diffuse metastasis Prn Oxygen if needed No aggressive management at this time. Patient is a DNR CC. Shared decision with patient and family for no aggressive treatment at this time. Shared decision to continue current home medications and for Dr. Gomez Sanchez to see patient to [place] for further clarification of goals of care. Per conversation between ED doctor and Dr. Sanchez inpatient hospice will be pursued. Will defer further conversation at this time to Dr. Sanchez. Cholangiocarcinoma with diffuse metastasis Oncology consult as above Continue home ciprofloxacin prophylactically to prevent abdominal infection. Home morphine and OxyContin continued. We will add breakthrough oxycodone IR. Scheduled Senokot. ARMIN Her creatinine on admission was 2.15 Her creatinine about a year ago was around 0.90. Her BUN on admission was 39. BUN a year ago was less than 20. Likely prerenal from dehydration. Patient received some IV fluid hydration at the emergency department. In the setting of chest congestion; pleural effusion and consideration for hospice IV fluid hydration will not have been warranted. However patient had hypoglycemia at emergency department for which reason patient was given D50. We will start patient on D5W which should help her blood glucose; and also help for hydration for her ARMIN since AK likely is prerenal. Further hydration will depend upon goes of care Repeat BMP in a.m. Leukocytosis White count on admission was 22,100 Likely reactive from cancer. It could also be from infection. Repeat CBC in a.m. We will continue her home ciprofloxacin. Hypoglycemia Receive half an amp of dextrose at emergency department Gentle hydration with D5W. DVT prophylaxis Subcutaneous heparin. Lovenox not started because of decreased creatinine clearance. Code Visit Inpatient E&M: 98175 Init Hosp L3
--- NOTE | 2018-02-02 22:32 | NURSING ---
Pt's one touch was 59. Juice given per protocol. Pt appears to be asymptomatic. Talking to this RN and able to take all 4 oz of juice.
--- NOTE | 2018-02-02 22:56 | NURSING ---
Blood sugar on recheck was 69. Coke given and D5W @ 50 cc/hr up.
[2018-02-02 23:56] LABS: Bedside Glucose 69 mg/dL (70-110)
[2018-02-02 23:56] LABS: Bedside Glucose 59 mg/dL (70-110)
[2018-02-02 23:56] LABS: Bedside Glucose 90 mg/dL (70-110)
[2018-02-03] MEDS: Ciprofloxacin 500 MG Tablet PO ×2 (00:01→09:47)
[2018-02-03] MEDS: Senna Tablet 1 TABLET PO ×2 (00:01→08:42)
[2018-02-03] MEDS: Montelukast 10 MG Tablet PO (00:02)
[2018-02-03] MEDS: Heparin Injection (Vial) 5,000 UNIT/ML VIAL 5000 UNIT SC ×2 (00:08→06:56)
[2018-02-03 01:25] LABS: Thyroid Stim Hormone (TSH) 1.81 uIU/mL (0.358-3.74)
[2018-02-03] MEDS: Menthol/Lanolin/Calamine/Znox 113 GM Tube 1 APPLIC TOPICAL ×2 (03:17→09:47)
[2018-02-03] MEDS: oxyCODONE 5 MG Tablet 10 MG PO ×3 (03:32→16:01)
[2018-02-03 03:34] VITALS: BP 128/59; PULSE 96; RESP 20; TEMP 36.6; O2SAT 97
[2018-02-03 05:34] LABS: Hematocrit 30.4 % (37-47); Hemoglobin 9.7 g/dl (12.0-15.0); Mean Corp Hgb Conc 31.9 g/gl (32-36); Mean Corpuscular Hgb 31.6 pg (27.0-32.0); Mean Platelet Vol. 9.6 fl (6.2-12.0); Platelet Count 115 K/mm3 (150-450); RBC Distribution Width CV 16.9 % (11.6-14.6); RBC Distribution Width SD 60.2 fl (35.1-43.9); Red Blood Count 3.07 M/mm3 (4.2-5.4); White Blood Count 21.1 K/mm3 (4.4-11.0)
[2018-02-03 05:35] LABS: Scan Indicated on CBC? Y/N NO
[2018-02-03 05:49] LABS: Anion Gap 10 (5-15); BUN 40 mg/dL (7-18); BUN/Creat Ratio 19.7 RATIO (10-20); Calcium,Total 7.6 mg/dL (8.5-10.1); Chloride 109 mmol/L (98-107); Creatinine, Serum 2.03 mg/dL (0.55-1.02); EST Glomerular Filtration Rate 26 mL/min (>60); Est Glom Filt Rate - Afr Amer 31 mL/min (>60); Estimated Creatinine Clearance 19.74 ml/min; Glucose 92 mg/dL (74-106); Potassium 4.3 mmol/L (3.5-5.1); Sodium Level 137 mmol/L (136-145)
[2018-02-03 06:39] VITALS: O2SAT 96
[2018-02-03] MEDS: Levothyroxine 175 MCG Tablet PO (06:56)
[2018-02-03 07:30] VITALS: BP 126/55; PULSE 95; RESP 12; TEMP 36.3; O2SAT 98
--- NOTE | 2018-02-03 07:37 | NURSING ---
up to bsc, voided scant amount. Bladder scan-66 mls. Updated dayshift RN to monitor
[2018-02-03] MEDS: Pantoprazole Sodium 40 MG Tablet PO (08:42)
[2018-02-03] MEDS: Aspirin E.C. 81 MG Tablet PO (08:42)
[2018-02-03 09:21] VITALS: PULSE 100
--- NOTE | 2018-02-03 09:21 | US_ITS ---
PROCEDURE: ULTRASOUND GUIDED THORACENTESIS. DATE: February 03, 2018. INDICATION: Female, 67 years old. Right pleural effusion. PHYSICIAN: Rahul Paez M.D. PROCEDURE: The risks, benefits, and alternatives to the procedure were explained to the patient. The specific risks of bleeding, infection, and pneumothorax requiring chest tube insertion were discussed and accepted. Written informed consent was obtained. Ultrasonographic evaluation of the right lower pleural space was carried out. An adequate pocket was identified. The patient was placed in the sitting, upright position. The overlying skin was prepped and draped in sterile fashion. 1% lidocaine was administered subcutaneously for local anesthesia. Under ultrasound guidance, a 5 Czech thoracentesis needle/catheter system was advanced into the right posterior lower pleural fluid collection. Approximately 200 mL of tom-colored gelatinous fluid was drained. The catheter was removed, and a sterile dressing was applied. A specimen was collected and sent to the laboratory for analysis, as requested by the referring clinician. The patient tolerated the procedure well. A chest x-ray was ordered. US/Thoracentesis W US IMPRESSION: Ultrasound-guided right thoracentesis. Electronically Signed: Rahul Paez MD at 15:44 EDT Tel [phone], Service support ,
--- NOTE | 2018-02-03 10:10 | PN_ITS ---
Patient Problems: Active and Suspected Problems (Last Reviewed 02/02/18 @ 20:37 by Evaristo Mayen MD) Pleural effusion, right (Acute) Vitals/I&O's: Vital Signs Temp Pulse Resp BP Pulse Ox 97.4 F L 100 12 126/55 H 98 02/03/18 07:30 02/03/18 09:21 02/03/18 07:30 02/03/18 07:30 02/03/18 07:30 Oxygen Flow Rate (L/min) 2 Oxygen Delivery Method Nasal Cannula Weight: 91.9 kg Body Mass Index (BMI) 38.2 Intake and Output for Last 24 Hours 02/01/18 02/02/18 02/03/18 23:59 23:59 23:59 Intake Total 200 / 200 408 / 408 Output Total 80 / 80 30 / 30 Balance 120 / 120 378 / 378 Laboratory Results 02/02/18 18:16: WBC 22.1 H, RBC 3.24 L, Hgb 10.2 L, Hct 32.0 L, MCV 98.8, MCH 31.5, MCHC 31.9 L, RDW 17.1 H, RDW Differential 60.6 H, Plt Count 130 L, MPV 10.1, Immature Gran % (Auto) PREMIX OPERATOR CONCENTRATE, Neut % (Auto) PREMIX OPERATOR CONCENTRATE, Lymph % (Auto) PREMIX OPERATOR CONCENTRATE, [place] % (Auto) PREMIX OPERATOR CONCENTRATE, Eos % (Auto) PREMIX OPERATOR CONCENTRATE, Baso % (Auto) PREMIX OPERATOR CONCENTRATE, Absolute Neuts (auto) PREMIX OPERATOR CONCENTRATE, Absolute Lymphs (auto) PREMIX OPERATOR CONCENTRATE, Total Counted 100, Neutrophils % (Manual) 75 H, Band Neutrophils % 11 H, Lymphocytes % (Manual) 3 L, Monocytes % (Manual) 5, Basophils % (Manual) 1, Metamyelocytes % 5 H, Diff Path Review August02/02/18 18:16: Sodium 138, Potassium 4.4, Chloride 109 H, Carbon Dioxide 19.0 L , Anion Gap 10, BUN 39 H, Creatinine 2.15 H, Estim Creat Clear Calc 31.83, Est GFR (MDRD) Af Amer 29 L, Est GFR (MDRD) Non-Af 24 L, BUN/Creatinine Ratio 18.1, Glucose 66 L, Calcium 7.7 L, Total Bilirubin 12.80 H, Direct Bilirubin 10.76 H, AST 124 H, ALT 42, Alkaline Phosphatase 279 H, Total Protein 7.8, Albumin 1.2 L, Globulin 6.6 H, Lipase 45 L 02/02/18 18:16: Lactic Acid 1.5 02/02/18 18:16: TSH 1.81 02/02/18 18:45: Urine Color Devika, Urine Clarity Cloudy, Urine pH 5.0, Ur Specific [place] 1.020, Urine Protein 30 H, Urine Glucose (UA) Normal, Urine Ketones 5 H, Urine Occult Blood 150 H, Urine Nitrite Positive H, Urine Bilirubin 6 H, Urine Urobilinogen 4 H, Ur Leukocyte Esterase 25 H, Urine RBC 5-10 SEEN, Urine WBC 0-5 SEEN, Ur Squamous Epith Cells 0-5 SEEN, Amorphous Sediment 1+ URATE, Urine Bacteria RARE, Urine Mucus 0 SEEN, Urine Yeast 1+ 02/02/18 22:26: POC Glucose 59 L 02/02/18 22:53: POC Glucose 69 L 02/02/18 23:25: POC Glucose 90 02/03/18 05:20: WBC 21.1 H, RBC 3.07 L, Hgb 9.7 L, Hct 30.4 L, MCV 99.0, MCH 31.6, MCHC 31.9 L, RDW 16.9 H, RDW Differential 60.2 H, Plt Count 115 L, MPV 9.6 02/03/18 05:20: Sodium 137, Potassium 4.3, Chloride 109 H, Carbon Dioxide 18.0 L , Anion Gap 10, BUN 40 H, Creatinine 2.03 H, Estim Creat Clear Calc 19.74, Est GFR (MDRD) Af Amer 31 L, Est GFR (MDRD) Non-Af 26 L, BUN/Creatinine Ratio 19.7, Glucose 92, Calcium 7.6 L Current [facility]ations [facility] Admin: 02/03/18 08:42 Dose: 81 mg Calamine/Phenol (Calmoseptine Ointment) 1 applic TOPICAL BID [facility]; Protocol Last Admin: 02/03/18 09:47 Dose: 1 applicatio Cholecalciferol (Vitamin D) 2,000 unit PO DAILY [facility] Last Admin: 02/03/18 08:43 Dose: 2,000 unit Ciprofloxacin HCl (Cipro) 500 mg PO BID [facility] Last Admin: 02/03/18 09:47 Dose: 500 mg Dexamethasone (Decadron) 0.25 mg PO QODAY@0800 [facility] Last Admin: 02/03/18 08:43 Dose: 0.25 mg Heparin Sodium (Beef Lung) () 50 units IV UD PRN PRN Reason: HEPARIN FLUSH Levothyroxine Sodium (Synthroid) 175 mcg PO DAILY@0600 [facility] Last Admin: 02/03/18 06:56 Dose: 175 mcg Magnesium Hydroxide (Milk Of Magnesia) 30 ml PO DAILY PRN PRN Reason: Constipation Montelukast Sodium (Singulair) 10 mg PO QHS [facility] Last Admin: 02/03/18 00:02 Dose: 10 mg Morphine Sulfate (Ms Contin) 30 mg PO Q12 [facility] Last Admin: 02/03/18 00:02 Dose: 30 mg Nutritional Formula (Lactose Free) (Ensure Clear) 120 ml PO 4X/DAY [facility] Last Admin: 02/03/18 09:48 Dose: Not Given Ondansetron HCl (Zofran) 4 mg IV Q8H PRN PRN PRN Reason: NAUSEA Oxycodone HCl (Oxyir) 10 mg PO Q4H PRN PRN PRN Reason: PAIN Last Admin: 02/03/18 07:43 Dose: 10 mg Pantoprazole Sodium (Protonix) 40 mg PO DAILY [facility] Last Admin: 02/03/18 08:42 Dose: 40 mg Senna (Senokot) 1 tablet PO BID [facility] Last Admin: 02/03/18 08:42 Dose: 1 tablet Sodium Chloride () 10 ml IV UD PRN PRN Reason: R PORT FLUSH Last Admin: 02/03/18 06:57 Dose: 10 ml Medical Necessity - Tobacco Use Smoking Status: Never smoker Assessment/Plan All Active Problems (Last Reviewed 02/02/18 @ 20:37 by Evaristo Mayen MD) Pleural effusion, right (Acute) Aortocoronary bypass status (Resolved) Abnormal electrocardiogram (Acute) Presence of stent in coronary artery (Resolved) emt intermediate use of drug (Acute) Sepsis (Acute) Neutropenic fever (Acute) Severe sepsis with acute organ dysfunction due to Gram negative bacteria (Acute)
--- NOTE | 2018-02-03 10:17 | NURSING ---
labs drawn and ivf changed to 75cc/hr per dr. talamantes
[2018-02-03] MEDS: 0.9% Normal Saline 1,000 ML 75 ML IV (10:19)
[2018-02-03 10:36] LABS: International Normalized Ratio 1.6; Partial Thromboplast Time 39.4 Seconds (24.1-36.2); Prothrombin Time (Protime)PT. 19.3 SECONDS (11.7-14.9)
--- NOTE | 2018-02-03 11:22 | NURSING ---
Notified by Renu senior business consultant film processing shift supervisor, that ER spoke with Dr. Sanchez regarding pt's admission. However, consult still on worklist. This RN called Dr. Sanchez's office at this time and spoke with Evelyn to ensure that Dr. Sanchez was aware of consult.
--- NOTE | 2018-02-03 11:51 | PCM.CONS.B ---
Problem List (1) Cholangiocarcinoma Status: Chronic - Consult Date of Consult: 02/03/18. - Reason for Consult HPI: The patient is a 67 yo female with PMH significant for h/o?CAD?(PCI with stent 2008 followed by CABG x1 vessel about a week after PCI),?DM, CKD, ICH?(etiology not clear; 2011; underwent hematoma evacuation), hypertension, dyslipidemia?and paroxysmal atrial fibrillation?(had been on amiodarone which was discontinued due to pulmonary side effects--protracted cough), DVT?RLE?(2011 during hospitalization for ICH); IVC filter--still in place) and cholecystectomy?complicated by pneumothorax who was evaluated for abdominal pain in March 2016. ? Her PCP ordered a CT scan of the abdomen and pelvis which was done without IV contrast due to CKD 03/24/2016. The study demonstrated mild to moderate intrahepatic biliary ductal dilation with no other significant abnormality. ? She presented to the hospital on 03/24/2016 with complaints of abdominal pain. She had intermittent fevers. She underwent an ultrasound which demonstrated the biliary duct to be up to 7 mm dilated. She then underwent ERCP on 03/25/2016. Per the report, the proximal common bile duct appeared to have a filling defect which was several centimeters long and a balloon was passed through this area of obstruction and to the proximal hepatic ducts which were filled and observed to be dilated. A 9 cm 7 [place] stent was placed through the nonfilling defect. The patient was on aspirin at the time this procedure is performed so biopsies were not performed. ? The following day on 03/26/2016 an MRCP?revealed decreased dilation of the intrahepatic an extra hepatic biliary ducts compared to previous studies. Significantly there appeared to be a mass within the gene hepatis involving the right and left lobes of the liver. There was a suggestion that there was an infiltrative-type process extending through the liver possibly representing inflammatory process around the smaller intrahepatic dilated ducts. The more central process was ill-defined measured up to 7.2 cm in AP dimension by 5.8 cm in transverse dimension by 4.9 cm in CC dimension. The pancreatic duct appeared normal with no demonstrated filling defect dilation or stricture. No other abnormalities were observed other than a right-sided renal cyst measuring partially 2.7 cm in greatest dimension. ? Patient underwent ERCP on 05/05/2016. She was observed to have an obstructing mass at Klatskin's area. Brushings were positive for adenocarcinoma. A 10 Telugu 9 cm stent was placed to relieve the obstruction. Was immediately hospitalized afterward for sepsis. Seven day hospital stay. She had mild chronic right lower extremity swelling from previous DVTs. She had mild residual right hemiparesis of the right leg from ICH. ? Previous therapy: 1) Gemcitabine/oxaliplatin x1 cycle. 2) She underwent PTHC with placement of a right internal/external and left external biliary drainage catheters on 08/05/2016. Patient underwent exploratory laparotomy on 08/31/2016. On obtaining access to the gene hepatis, a firm 2-3 cm mass at the hilum was observed with involvement of the hepatic artery, part of the duodenum as well as multiple lymph nodes observed along the celiac axis. No distant metastasis was obvious. It was felt that because a local invasion of the tumor was not resectable. 3) Insertion of a 10 mm diameter by 68 mm diameter length wall stent was inserted from the confluence through approximately 3 mm distal from the duodenal diverticulum on 09/02/2016. 4) Cis/gem. 5) Gemcitabine. 6) Capecitabine. First cycle:12/12/17 She was admitted to [facility] 01/20 through 01/26: Per d/c summary: Known occlusion of the R-sided ductal system sp elective right PTHC placement 01/24 due to persistent elevated bilirubin at 9s after left sided PTHC replacement. During procedure of R PTHC,?Cholangiogram was performed which demonstrated severe dilation of the intrahepatic ducts without contrast transversing the common bile duct. ?Purulent bile?was obtained and sent for culture.?Cultures + for staph aureus and pseudomonas. But patient was afebrile and no leukocytosis. ID was consulted and recommended watch off antibiotics. Patient was on Cipro ppx prior to admission for over a year, ID felt low risk for c ciff infection but probably also will not provide much benefit. Cipro ppx was continued at the time of discharge. Patient had severe RUQ abdominal pain after procedure, which was improved with Toradol and discharged on tylenol/naproxen prn in addition to her home pain regimen. Her Total bilirubin remains at 9s after R PTHC placement despite good drainage. She's had progressive debility since her discharge from the hospital. Her brought her to the ER last night. She is suffering from severe asthenia and excruciating right upper quadrant pain. No fever. Jaundiced on presentation. Bilirubin 12.8 mg/dl. It was 9.4 mg/dl on discharge on 01/26. imaging demonstrated new pleural effusion. Patient was admitted. She still having pain that she rates as a 9 out of 10. Pain is in the right upper quadrant. Allergies amiodarone Adverse Reaction (Verified 06/27/17 09:44) SOB lisinopril Adverse Reaction (Verified 06/27/17 09:43) cough COUGH Current Medications Albuterol Sulfate (Ventolin Aerosols) 2.5 mg INHALATION Q2H PRN PRN PRN Reason: SOB &/OR WHEEZING Albuterol/Ipratropium (Duoneb) 3 ml INHALATION Q4H.RT [facility] Aspirin (Ecotrin) 81 mg PO DAILYCM [facility] Last Admin: 02/03/18 08:42 Dose: 81 mg Calamine/Phenol (Calmoseptine Ointment) 1 applic TOPICAL BID [facility]; Protocol Last Admin: 02/03/18 09:47 Dose: 1 applicatio Cholecalciferol (Vitamin D) 2,000 unit PO DAILY [facility] Last Admin: 02/03/18 08:43 Dose: 2,000 unit Ciprofloxacin HCl (Cipro) 500 mg PO BID [facility] Last Admin: 02/03/18 09:47 Dose: 500 mg Dexamethasone (Decadron) 0.25 mg PO QODAY@0800 [facility] Last Admin: 02/03/18 08:43 Dose: 0.25 mg Heparin Sodium (Beef Lung) () 50 units IV UD PRN PRN Reason: HEPARIN FLUSH Levothyroxine Sodium (Synthroid) 175 mcg PO DAILY@0600 [facility] Last Admin: 02/03/18 06:56 Dose: 175 mcg Magnesium Hydroxide (Milk Of Magnesia) 30 ml PO DAILY PRN PRN Reason: Constipation Montelukast Sodium (Singulair) 10 mg PO QHS [facility] Last Admin: 02/03/18 00:02 Dose: 10 mg Morphine Sulfate (Ms Contin) 30 mg PO Q12 [facility] Last Admin: 02/03/18 11:59 Dose: Not Given Nutritional Formula (Lactose Free) (Ensure Clear) 120 ml PO 4X/DAY [facility] Last Admin: 02/03/18 09:48 Dose: Not Given Ondansetron HCl (Zofran) 4 mg IV Q8H PRN PRN PRN Reason: NAUSEA Oxycodone HCl (Oxyir) 10 mg PO Q4H PRN PRN PRN Reason: PAIN Last Admin: 02/03/18 07:43 Dose: 10 mg Pantoprazole Sodium (Protonix) 40 mg PO DAILY [facility] Last Admin: 02/03/18 08:42 Dose: 40 mg Senna (Senokot) 1 tablet PO BID [facility] Last Admin: 02/03/18 08:42 Dose: 1 tablet Sodium Chloride () 10 ml IV UD PRN PRN Reason: R PORT FLUSH Last Admin: 02/03/18 10:12 Dose: 10 ml PHYSICAL EXAM: Vitals: Vital Signs Temp 97.4 F L 02/03/18 07:30 Pulse 100 02/03/18 09:21 Resp 12 02/03/18 07:30 BP 126/55 H 02/03/18 07:30 Pulse Ox 98 02/03/18 07:30 Intake & Output 02/01/18 02/02/18 02/03/18 23:59 23:59 23:59 Intake Total 200 / 200 508 / 508 Output Total 80 / 80 170 / 170 Balance 120 / 120 338 / 338 Weight: 91.9 kg 91.9 kg Intake: Oral 200 / 200 100 / 100 IV fluid/meds 408 / 408 Output: Urine 140 / 140 Drainage Amount 80 / 80 30 / 30 left 20 / 20 20 / 20 right 60 / 60 10 / 10 Other: Drain Location left under left breast under left breast right under right breast under right breast Tube Type left biliary drains biliary drains left biliary drain biliary drain right biliary drains biliary drains right biliary drain biliary drain Very ill appearing. EYES: Sclerae are icteric bilaterally. RESPIRATORY: Transmitted sounds preclude proper auscultation. CARDIOVASCULAR: Rhythm is regular. ABDOMEN: The abdomen is nondistended. Very tender RUQ. Extremities: significant swelling of arms and legs. SKIN: Jaundiced. ASSESSMENT/PLAN: 1) Metastatic cholangiocarcinoma. Assessment: -Recent progression documented with new bone metastases. -She underwent second external biliary drainage catheter at [facility]. Despite this bilirubin continues to increase and pain has been worsening. -KPS is 10-20% -Discussed need for hospice with both the patient and her . They're both in agreement. Plan: -Contacted hospice for inpatient transfer. -Reasonable to aggressively diurese after inserting Flores--Would make her more comfortable. -Hold off on thoracentesis.
[2018-02-03 11:55] LABS: Bedside Glucose 92 mg/dL (70-110)
--- NOTE | 2018-02-03 11:56 | CON.PCM_ITS ---
Problem List (1) Cholangiocarcinoma Status: Chronic - Consult Date of Consult: 02/03/18. - Reason for Consult HPI: The patient is a 67 yo female with PMH significant for h/o?CAD?(PCI with stent 2008 followed by CABG x1 vessel about a week after PCI),?DM, CKD, ICH ?(etiology not clear; 2011; underwent hematoma evacuation), hypertension, dyslipidemia?and paroxysmal atrial fibrillation?(had been on amiodarone which was discontinued due to pulmonary side effects--protracted cough), DVT?RLE?(2011 during hospitalization for ICH); IVC filter--still in place) and cholecystectomy?complicated by pneumothorax who was evaluated for abdominal pain in March 2016. ? Her PCP ordered a CT scan of the abdomen and pelvis which was done without IV contrast due to CKD 03/24/2016. The study demonstrated mild to moderate intrahepatic biliary ductal dilation with no other significant abnormality. ? She presented to the hospital on 03/24/2016 with complaints of abdominal pain. She had intermittent fevers. She underwent an ultrasound which demonstrated the biliary duct to be up to 7 mm dilated. She then underwent ERCP on 03/25/2016. Per the report, the proximal common bile duct appeared to have a filling defect which was several centimeters long and a balloon was passed through this area of obstruction and to the proximal hepatic ducts which were filled and observed to be dilated. A 9 cm 7 [place] stent was placed through the nonfilling defect. The patient was on aspirin at the time this procedure is performed so biopsies were not performed. ? The following day on 03/26/2016 an MRCP?revealed decreased dilation of the intrahepatic an extra hepatic biliary ducts compared to previous studies. Significantly there appeared to be a mass within the gene hepatis involving the right and left lobes of the liver. There was a suggestion that there was an infiltrative-type process extending through the liver possibly representing inflammatory process around the smaller intrahepatic dilated ducts. The more central process was ill-defined measured up to 7.2 cm in AP dimension by 5.8 cm in transverse dimension by 4.9 cm in CC dimension. The pancreatic duct appeared normal with no demonstrated filling defect dilation or stricture. No other abnormalities were observed other than a right-sided renal cyst measuring partially 2.7 cm in greatest dimension. ? Patient underwent ERCP on 05/05/2016. She was observed to have an obstructing mass at Klatskin's area. Brushings were positive for adenocarcinoma. A 10 [place] 9 cm stent was placed to relieve the obstruction. Was immediately hospitalized afterward for sepsis. Seven day hospital stay. She had mild chronic right lower extremity swelling from previous DVTs. She had mild residual right hemiparesis of the right leg from ICH. ? Previous therapy: 1) Gemcitabine/oxaliplatin x1 cycle. 2) She underwent PTHC with placement of a right internal/external and left external biliary drainage catheters on 08/05/2016. Patient underwent exploratory laparotomy on 08/31/2016. On obtaining access to the gene hepatis, a firm 2-3 cm mass at the hilum was observed with involvement of the hepatic artery, part of the duodenum as well as multiple lymph nodes observed along the celiac axis. No distant metastasis was obvious. It was felt that because a local invasion of the tumor was not resectable. 3) Insertion of a 10 mm diameter by 68 mm diameter length wall stent was inserted from the confluence through approximately 3 mm distal from the duodenal diverticulum on 09/02/2016. 4) Cis/gem. 5) Gemcitabine. 6) Capecitabine. First cycle:12/12/17 She was admitted to [facility] 01/20 through 01/26: Per d/c summary: Known occlusion of the R-sided ductal system sp elective right PTHC placement 01/24 due to persistent elevated bilirubin at 9s after left sided PTHC replacement. During procedure of R PTHC,?Cholangiogram was performed which demonstrated severe dilation of the intrahepatic ducts without contrast transversing the common bile duct. ?Purulent bile?was obtained and sent for culture.?Cultures + for staph aureus and pseudomonas. But patient was afebrile and no leukocytosis. ID was consulted and recommended watch off antibiotics. Patient was on Cipro ppx prior to admission for over a year, ID felt low risk for c ciff infection but probably also will not provide much benefit. Cipro ppx was continued at the time of discharge. Patient had severe RUQ abdominal pain after procedure, which was improved with Toradol and discharged on tylenol/naproxen prn in addition to her home pain regimen. Her Total bilirubin remains at 9s after R PTHC placement despite good drainage. She's had progressive debility since her discharge from the hospital. Her brought her to the ER last night. She is suffering from severe asthenia and excruciating right upper quadrant pain. No fever. Jaundiced on presentation. Bilirubin 12.8 mg/dl. It was 9.4 mg/dl on discharge on 01/26. imaging demonstrated new pleural effusion. Patient was admitted. She still having pain that she rates as a 9 out of 10. Pain is in the right upper quadrant. Allergies amiodarone Adverse Reaction (Verified 06/27/17 09:44) SOB lisinopril Adverse Reaction (Verified 06/27/17 09:43) cough COUGH Current Medications Albuterol Sulfate (Ventolin Aerosols) 2.5 mg INHALATION Q2H PRN PRN PRN Reason: SOB &/OR WHEEZING Albuterol/Ipratropium (Duoneb) 3 ml INHALATION Q4H.RT [facility] Aspirin (Ecotrin) 81 mg PO DAILYCM [facility] Last Admin: 02/03/18 08:42 Dose: 81 mg Calamine/Phenol (Calmoseptine Ointment) 1 applic TOPICAL BID [facility]; Protocol Last Admin: 02/03/18 09:47 Dose: 1 applicatio Cholecalciferol (Vitamin D) 2,000 unit PO DAILY [facility] Last Admin: 02/03/18 08:43 Dose: 2,000 unit Ciprofloxacin HCl (Cipro) 500 mg PO BID [facility] Last Admin: 02/03/18 09:47 Dose: 500 mg Dexamethasone (Decadron) 0.25 mg PO QODAY@0800 [facility] Last Admin: 02/03/18 08:43 Dose: 0.25 mg Heparin Sodium (Beef Lung) () 50 units IV UD PRN PRN Reason: HEPARIN FLUSH Levothyroxine Sodium (Synthroid) 175 mcg PO DAILY@0600 [facility] Last Admin: 02/03/18 06:56 Dose: 175 mcg Magnesium Hydroxide (Milk Of Magnesia) 30 ml PO DAILY PRN PRN Reason: Constipation Montelukast Sodium (Singulair) 10 mg PO QHS [facility] Last Admin: 02/03/18 00:02 Dose: 10 mg Morphine Sulfate (Ms Contin) 30 mg PO Q12 [facility] Last Admin: 02/03/18 11:59 Dose: Not Given Nutritional Formula (Lactose Free) (Ensure Clear) 120 ml PO 4X/DAY [facility] Last Admin: 02/03/18 09:48 Dose: Not Given Ondansetron HCl (Zofran) 4 mg IV Q8H PRN PRN PRN Reason: NAUSEA Oxycodone HCl (Oxyir) 10 mg PO Q4H PRN PRN PRN Reason: PAIN Last Admin: 02/03/18 07:43 Dose: 10 mg Pantoprazole Sodium (Protonix) 40 mg PO DAILY [facility] Last Admin: 02/03/18 08:42 Dose: 40 mg Senna (Senokot) 1 tablet PO BID [facility] Last Admin: 02/03/18 08:42 Dose: 1 tablet Sodium Chloride () 10 ml IV UD PRN PRN Reason: R PORT FLUSH Last Admin: 02/03/18 10:12 Dose: 10 ml PHYSICAL EXAM: Vitals: Vital Signs Temp 97.4 F L 02/03/18 07:30 Pulse 100 02/03/18 09:21 Resp 12 02/03/18 07:30 BP 126/55 H 02/03/18 07:30 Pulse Ox 98 02/03/18 07:30 Intake & Output 02/01/18 02/02/18 02/03/18 23:59 23:59 23:59 Intake Total 200 / 200 508 / 508 Output Total 80 / 80 170 / 170 Balance 120 / 120 338 / 338 Weight: 91.9 kg 91.9 kg Intake: Oral 200 / 200 100 / 100 IV fluid/meds 408 / 408 Output: Urine 140 / 140 Drainage Amount 80 / 80 30 / 30 left 20 / 20 20 / 20 right 60 / 60 10 / 10 Other: Drain Location left under left breast under left breast right under right breast under right breast Tube Type left biliary drains biliary drains left biliary drain biliary drain right biliary drains biliary drains right biliary drain biliary drain Very ill appearing. EYES: Sclerae are icteric bilaterally. RESPIRATORY: Transmitted sounds preclude proper auscultation. CARDIOVASCULAR: Rhythm is regular. ABDOMEN: The abdomen is nondistended. Very tender RUQ. Extremities: significant swelling of arms and legs. SKIN: Jaundiced. ASSESSMENT/PLAN: 1) Metastatic cholangiocarcinoma. Assessment: -Recent progression documented with new bone metastases. -She underwent second external biliary drainage catheter at [facility]. Despite this bilirubin continues to increase and pain has been worsening. -KPS is 10-20% -Discussed need for hospice with both the patient and her . They're both in agreement. Plan: -Contacted hospice for inpatient transfer. -Reasonable to aggressively diurese after inserting Flores--Would make her more comfortable. -Hold off on thoracentesis.
--- NOTE | 2018-02-03 12:44 | DCINST_ITS ---
- Discharge Diagnoses Current Active Problems: Current Active and Chronic Problems (Last Reviewed 02/02/18 @ 20:37 by Evaristo Mayen MD) Pleural effusion, right (Acute) Cholangiocarcinoma (Chronic) Reason(s) for Visit for Discharge Instructions: Shortness of breath Allergies/Adverse Reactions: Allergies amiodarone Adverse Reaction (Verified 06/27/17 09:44) SOB lisinopril Adverse Reaction (Verified 06/27/17 09:43) cough COUGH Medications to take at Discharge Montelukast [Singulair] 10 mg PO QHS 07/13/16 Omeprazole 40 mg PO DAILY 07/13/16 Aspirin E.C. [Ecotrin] 81 mg PO DAILY 02/02/18 Cholecalciferol (Vitamin D3) [D3-2000] 2,000 unit PO DAILY 02/02/18 Ciprofloxacin [Cipro] 500 mg PO BID 02/02/18 Dexamethasone 0.25 mg PO QODAY 02/02/18 Levothyroxine [Synthroid] 175 mcg PO DAILY 02/02/18 Morphine Sulfate [Morphine Sulfate ER] 30 mg PO Q12H 02/02/18 Oxycodone [Oxyir] 10 mg PO Q4H PRN PRN 02/02/18 Primary Care Physician: Francisca Barron NP-C [Primary Care Provider] - Test Results: Test results from this visit will be discussed in further detail at your follow- up appointment, if applicable. Proposed Discharge Date: 02/03/18
--- NOTE | 2018-02-03 12:44 | PCM.DC.SUM ---
Discharge Date and Diagnosis - Problem List Patient Problems: Active and Suspected Problems (Last Reviewed 02/02/18 @ 20:37 by Evaristo Mayen MD) Pleural effusion, right (Acute) Date of Admission: 02/02/18 Date of Discharge: 02/03/18 - Primary Discharge Diagnosis Active and Suspected Problems (Last Reviewed 02/02/18 @ 20:37 by Evaristo Mayen MD) Pleural effusion, right (Acute) Acute hypoxic respiratory insufficiency Metastatic cholangiocarcinoma - Secondary Discharge Diagnosis Chronic Problems (Last Reviewed 02/02/18 @ 20:37 by Evaristo Mayen MD) Cholangiocarcinoma (Chronic) Supraventricular premature beats (Chronic) Paroxysmal supraventricular tachycardia (Chronic) Old myocardial infarction (Chronic) Palpitations (Chronic) 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) CABG, LUIS to LAD 03/13/10 Cholangiocarcinoma (Chronic) History of biliary stenting Pulmonary hypertension (Chronic) Obstructive jaundice due to cancer (Chronic) Status post biliary stenting Common bile duct mass (Chronic) Coronary atherosclerosis of [place] coronary vessel (Chronic) Percutaneous transluminal coronary angioplasty status (Chronic) S/P CABG x 1 (Chronic) 03/13/10, CABG LUIS to LAD occluded, RCA normal Cx minor luminal irreg; SVT (supraventricular tachycardia) (Chronic) HLD (hyperlipidemia) (Chronic) HTN (hypertension) (Chronic) Hypothyroidism (Chronic) Type II diabetes mellitus (Chronic) Hospital Course and Treatment Imaging Results: 02/03/18 09:21 US Thora [Thoracentesis W US] [US] Routine Oncology - Dr. Sanchez Operations: None Procedures: None Summary of Care Provided: The patient is a 67 year old F with past medical history of CAD, hypertension, hyperlipidemia, positive small atrial fibrillation, history of DVT right lower extremity status post IVC filter, history of metastatic cholangiocarcinoma comes in with complaints of shortness of breath ongoing for 2-3 days. She was found on arrival to have elevated white cell count, worsening liver function with increasing direct bilirubin as well as severe acute kidney injury with creatinine above 2 in a patient whose renal function was last normal. Patient's oncologist was contacted by the emergency room department and recommended hospice for the patient. Imaging in the emergency room showed new pleural effusion for which patient was going to have palliative pleural tap. Hospice was contacted by oncology and patient will be discharged to the inpatient hospice facility. Patient Problems: Active and Suspected Problems (Last Reviewed 02/02/18 @ 20:37 by Evaristo Mayen MD) Pleural effusion, right (Acute) Subjective: Patient was seen and examined. Complains of shortness of breath, denies chest pain, dizziness, palpitations. - Physical Exam General: Alert, Oriented x3, Cooperative, - - in moderate respiratory distress, pale, jaundiced HEENT: Atraumatic, PERRLA, EOMI, Normocephalic Oral: Dry Mucosa Neck: Supple, No JVD, Negative Carotid Bruits Lungs: Clear to auscultation, Normal air movement Cardiovascular: Regular rate, Regular Rhythm, Normal S1, Normal S2 Abdomen: Bowel Sounds Present, Soft, Non Tender, Non-Distended, Tender - over the right upper quadrant Extremities: Edema - +4, pitting Skin: - - Dark discoloration of skin from jaundice Musculoskeletal: No Tenderness to Palpation of Joints or Extremities Lymphatic: No Cervical, Supraclavicular, or Inguinal Adenopathy Neurological: Cranial nerves II-XII grossly intact, Neuro grossly intact Psych/Mental Status: Normal Affect, Appropriate Vital Signs Temp Pulse Resp BP Pulse Ox 97.4 F L 100 12 126/55 H 98 02/03/18 07:30 02/03/18 09:21 02/03/18 07:30 02/03/18 07:30 02/03/18 07:30 Oxygen Flow Rate (L/min) 2.5 Oxygen Delivery Method Nasal Cannula Weight: 91.9 kg Body Mass Index (BMI) 38.2 Intake and Output for Last 24 Hours 02/01/18 02/02/18 02/03/18 23:59 23:59 23:59 Intake Total 200 / 200 508 / 508 Output Total 80 / 80 170 / 170 Balance 120 / 120 338 / 338 Laboratory Tests Past 24 Hrs 02/02/18 02/02/18 02/02/18 18:16 18:16 18:16 WBC 22.1 H RBC 3.24 L Hgb 10.2 L Hct 32.0 L MCV 98.8 MCH 31.5 MCHC 31.9 L RDW 17.1 H RDW Differential 60.6 H Plt Count 130 L MPV 10.1 Immature Gran % (Auto) LEAF SIZE PICKER Neut % (Auto) LEAF SIZE PICKER Lymph % (Auto) LEAF SIZE PICKER Divide % (Auto) LEAF SIZE PICKER Eos % (Auto) LEAF SIZE PICKER Baso % (Auto) LEAF SIZE PICKER Absolute Neuts (auto) LEAF SIZE PICKER Absolute Lymphs (auto) LEAF SIZE PICKER Total Counted 100 Neutrophils % (Manual) 75 H Band Neutrophils % 11 H Lymphocytes % (Manual) 3 L Monocytes % (Manual) 5 Basophils % (Manual) 1 Metamyelocytes % 5 H Diff Path Review May foll PT INR APTT Sodium 138 Potassium 4.4 Chloride 109 H Carbon Dioxide 19.0 L Anion Gap 10 BUN 39 H Creatinine 2.15 H Estim Creat Clear Calc 31.83 Est GFR (MDRD) Af Amer 29 L Est GFR (MDRD) Non-Af 24 L BUN/Creatinine Ratio 18.1 Glucose 66 L Lactic Acid 1.5 Calcium 7.7 L Total Bilirubin 12.80 H Direct Bilirubin 10.76 H AST 124 H ALT 42 Alkaline Phosphatase 279 H Total Protein 7.8 Albumin 1.2 L Globulin 6.6 H Lipase 45 L TSH Urine Color Urine Clarity Urine pH Ur Specific [place] Urine Protein Urine Glucose (UA) Urine Ketones Urine Occult Blood Urine Nitrite Urine Bilirubin Urine Urobilinogen Ur Leukocyte Esterase Urine RBC Urine WBC Ur Squamous Epith Cells Amorphous Sediment Urine Bacteria Urine Mucus Urine Yeast 02/02/18 02/02/18 02/03/18 18:16 18:45 05:20 WBC 21.1 H RBC 3.07 L Hgb 9.7 L Hct 30.4 L MCV 99.0 MCH 31.6 MCHC 31.9 L RDW 16.9 H RDW Differential 60.2 H Plt Count 115 L MPV 9.6 Immature Gran % (Auto) Neut % (Auto) Lymph % (Auto) Divide % (Auto) Eos % (Auto) Baso % (Auto) Absolute Neuts (auto) Absolute Lymphs (auto) Total Counted Neutrophils % (Manual) Band Neutrophils % Lymphocytes % (Manual) Monocytes % (Manual) Basophils % (Manual) Metamyelocytes % Diff Path Review PT INR APTT Sodium Potassium Chloride Carbon Dioxide Anion Gap BUN Creatinine Estim Creat Clear Calc Est GFR (MDRD) Af Amer Est GFR (MDRD) Non-Af BUN/Creatinine Ratio Glucose Lactic Acid Calcium Total Bilirubin Direct Bilirubin AST ALT Alkaline Phosphatase Total Protein Albumin Globulin Lipase TSH 1.81 Urine Color Devika Urine Clarity Cloudy Urine pH 5.0 Ur Specific [place] 1.020 Urine Protein 30 H Urine Glucose (UA) Normal Urine Ketones 5 H Urine Occult Blood 150 H Urine Nitrite Positive H Urine Bilirubin 6 H Urine Urobilinogen 4 H Ur Leukocyte Esterase 25 H Urine RBC 5-10 SEEN Urine WBC 0-5 SEEN Ur Squamous Epith Cells 0-5 SEEN Amorphous Sediment 1+ URATE Urine Bacteria RARE Urine Mucus 0 SEEN Urine Yeast 1+ 02/03/18 02/03/18 05:20 10:08 WBC RBC Hgb Hct MCV MCH MCHC RDW RDW Differential Plt Count MPV Immature Gran % (Auto) Neut % (Auto) Lymph % (Auto) Divide % (Auto) Eos % (Auto) Baso % (Auto) Absolute Neuts (auto) Absolute Lymphs (auto) Total Counted Neutrophils % (Manual) Band Neutrophils % Lymphocytes % (Manual) Monocytes % (Manual) Basophils % (Manual) Metamyelocytes % Diff Path Review PT 19.3 H INR 1.6 APTT 39.4 H Sodium 137 Potassium 4.3 Chloride 109 H Carbon Dioxide 18.0 L Anion Gap 10 BUN 40 H Creatinine 2.03 H Estim Creat Clear Calc 19.74 Est GFR (MDRD) Af Amer 31 L Est GFR (MDRD) Non-Af 26 L BUN/Creatinine Ratio 19.7 Glucose 92 Lactic Acid Calcium 7.6 L Total Bilirubin Direct Bilirubin AST ALT Alkaline Phosphatase Total Protein Albumin Globulin Lipase TSH Urine Color Urine Clarity Urine pH Ur Specific [place] Urine Protein Urine Glucose (UA) Urine Ketones Urine Occult Blood Urine Nitrite Urine Bilirubin Urine Urobilinogen Ur Leukocyte Esterase Urine RBC Urine WBC Ur Squamous Epith Cells Amorphous Sediment Urine Bacteria Urine Mucus Urine Yeast POC Glucose 02/03/18 02/02/18 02/02/18 11:53 23:25 22:53 POC Glucose 92 90 69 L 02/02/18 22:26 POC Glucose 59 L Discharge Diet: Low fat/ Low Cholesterol, 2000 mg Sodium Diet Discharge Activity: Return to Normal Activity Home Medications: Medications to take at Discharge Montelukast [Singulair] 10 mg PO QHS 07/13/16 Omeprazole 40 mg PO DAILY 07/13/16 Aspirin E.C. [Ecotrin] 81 mg PO DAILY 02/02/18 Cholecalciferol (Vitamin D3) [D3-2000] 2,000 unit PO DAILY 02/02/18 Ciprofloxacin [Cipro] 500 mg PO BID 02/02/18 Dexamethasone 0.25 mg PO QODAY 02/02/18 Levothyroxine [Synthroid] 175 mcg PO DAILY 02/02/18 Morphine Sulfate [Morphine Sulfate ER] 30 mg PO Q12H 02/02/18 Oxycodone [Oxyir] 10 mg PO Q4H PRN PRN 02/02/18 Primary Care Physician: Francisca Barron NP-C [Primary Care Provider] - Disposition: Hospice Medical Facility Minutes spent on discharge:: 40 Patient Condition:: Stable Medical Necessity - Tobacco Use Smoking Status: Never smoker Tobacco Use: Non-smoker Meaningful Use Info Meaningful Use Diagnoses (Choose all that apply): None applicable Code Visit Inpatient E&M: 66827 Disch Hosp
[2018-02-03 12:58] VITALS: BP 103/56; PULSE 73; RESP 10; TEMP 36.4; O2SAT 95
--- NOTE | 2018-02-03 14:20 | RAD_ITS ---
STUDY: X-RAY CHEST REASON FOR EXAM: Female, 67 years old. Follow-up after recent thoracentesis. TECHNIQUE: Two portable AP radiographs of the chest are obtained in inspiration and expiration. COMPARISON: Radiographs of the chest dated February 02, 2018. FINDINGS: Percutaneously treated place drains are visible in the region of the right upper quadrant and/or right flank. Patient has had a sternotomy. Right-sided Mediport catheter is visible in the internal jugular vein and the tip of the catheter appears to be in the superior vena cava. Appears to be right basilar airspace consolidation and/or atelectasis. There is a moderately large right-sided pneumothorax. Estimated amount of size approximately 20%. There is mild cardiac enlargement. Normal mediastinum and blayne. Normal visualized pulmonary arteries. There is atherosclerotic calcification of the aortic arch with tortuosity. There is demineralization of the osseous structures. Normal visualized ribs, clavicles, and shoulders. There is no demonstrated abnormality of the visualized soft tissue structures of the upper abdomen. RAD/Chest Insp/Exp 2 View IMPRESSION: 1. New right-sided pneumothorax. 2. Right basilar airspace consolidation and/or atelectasis. 3. There may be small residual right-sided pleural effusion. N.B. : FERNANDO GONZALEZ MD, confirmed on 02/03/2018 20:16:56 (ET) that the referring physician received the results and did not require a verbal consultation. Electronically Signed: Nhung Sexton MD at 19:59 EDT , Service support ,
--- NOTE | 2018-02-03 14:32 | NURSING ---
THIS RN UNABLE TO BE IN THORA PROCEDURE WITH PT DUE TO ANOTHER PROCEDURE. REPORT CALLED BACK TO MANDO. AWARE OF 200 ML DRAINAGE ON RT SIDE WITH SMALL POST THORA PNEUMOTHORAX. PT VS BEFORE RETURNING TO THE FLOOR, 96 BPM, 16 RPM, 96 % 3L NC. PT REMAINS DROWSY.
[2018-02-03 14:38] LABS: Pathologist Review Reviewed
--- NOTE | 2018-02-03 15:12 | NURSING ---
Report called to Kristie Flores RN at Inpatient hospice.
== END 2018-02-03 17:10 | disposition hospice, inpatient (51) ==
LOC: ED 19:00 → MS3 20:50
PROVIDERS: Admitting Provider Hospitalist; Emergency Provider Emergency Medicine; Family Provider Nurse Practitioner; PCP Nurse Practitioner; Visit Provider Internal Medicine
DX: J90 Pleural effusion, not elsewhere classified (principal); R06.89 Other abnormalities of breathing; C22.1 Intrahepatic bile duct carcinoma; I12.9 Hypertensive chronic kidney disease with stage 1 through stage 4 chronic kidney disease, or unspecified chronic kidney disease; N18.3 Chronic kidney disease, stage 3 (moderate); I25.10 Atherosclerotic heart disease of native coronary artery without angina pectoris; E78.5 Hyperlipidemia, unspecified; I25.2 Old myocardial infarction; Z79.899 Other long term (current) drug therapy; Z79.82 Long term (current) use of aspirin; Z95.1 Presence of aortocoronary bypass graft; E03.9 Hypothyroidism, unspecified; I27.20 Pulmonary hypertension, unspecified; I47.1 Supraventricular tachycardia; N17.9 Acute kidney failure, unspecified; D72.829 Elevated white blood cell count, unspecified; C79.51 Secondary malignant neoplasm of bone; E11.22 Type 2 diabetes mellitus with diabetic chronic kidney disease; Z86.718 Personal history of other venous thrombosis and embolism
CPT/HCPCS: 32555; 36415; 71045; 71046; 74176; 80048; 80076; 81001; 82962; 83605; 83690; 84443; 85025; 85027; 85610; 85730; 87040; 93005; 96361; 96372; 96374; 96375; 97165; 97802; 99218; 99283; J7030; A4216; G0378; J2405